=== PATIENT | male | born 1995 | race African-American/Black ===

== ENCOUNTER 2016-11-03 17:19 | Emergency (ER) | payer OTHER ==
[~2016-11-03] VITALS: Ht 177.8 cm; Wt 64.4 kg
[~2016-11-03 17:19] MED LIST: DOXYCYCLINE 10100 MG PO
[2016-11-03] MEDS ORDERED: ZOFRAN ODT4 MG PO (18:45)
[2016-11-03 18:57] VITALS: BP 114/76
== END 2016-11-03 18:59 | disposition home or self-care (01) ==
LOC: ER 17:19
DX: R11.2 Nausea with vomiting, unspecified (principal)

== ENCOUNTER 2017-05-09 19:23 | Emergency (ER) | payer OTHER ==
[~2017-05-09] VITALS: Ht 177.8 cm; Wt 63.5 kg
[~2017-05-09 19:23] MED LIST changes: +ZOFRAN ODT4 MG PO
== END 2017-05-09 20:17 | disposition home or self-care (01) ==
LOC: ER 19:23
DX: R11.2 Nausea with vomiting, unspecified (principal)